=== PATIENT | female | born 1985 | race Caucasian/White ===

== ENCOUNTER 2022-11-14 10:38 | Outpatient (CLI) | payer BC, OTHER | END 2022-11-14 10:39 | disposition home or self-care (01) | LOC: CSHMAMMO 10:38 | PROVIDERS: ATTEND Family Medicine | DX: Z12.31 Encounter for screening mammogram for malignant neoplasm of breast (principal) | CPT/HCPCS: 77063; 77067 ==

== ENCOUNTER 2024-09-18 16:33 | Outpatient (CLI) | payer OTHER | END 2024-09-18 16:34 | disposition home or self-care (01) | LOC: CSHRAD 16:33 | PROVIDERS: ATTEND Family Medicine | DX: R05.9 Cough, unspecified (principal) | CPT/HCPCS: 71046 ==